=== PATIENT | female | born 1975 | race Caucasian/White ===

== ENCOUNTER 2018-12-10 13:33 | Inpatient (IN) | payer BC ==
[~2018-12-10] VITALS: Ht 167.6 cm; Wt 63.4 kg
[2018-12-10 14:39] LABS: Basophils # (auto) 0.1 uL; Basophils % (auto) 1.8 % (0.0-2.0); Mean Corpuscular Hgb Conc. 29.2 g/dL (32.0-36.0); Red Blood Cells 7.64 10^6/uL (4.0-5.20); White Blood Cell 7.6 10^3/uL (4.4-10.8)
[2018-12-10 14:40] LABS: Eosinophils # (auto) 0 uL; Eosinophils % (auto) 0.3 % (0.0-7.0); Hematocrit 45.3 % (36.0-46.0); Hemoglobin 13.2 g/dL (12.2-16.2); Lymphocytes # (auto) 0.4 uL; Lymphocytes % (auto) 5.5 % (10.0-50.0); Mean Corpuscular Hemoglobin 17.3 pg (28.0-32.0); Mean Corpuscular Volume 59.3 fL (80.0-100.0); Monocytes # (auto) 0.7 uL; Neutrophils # (auto) 6.3 uL; Neutrophils % (auto) 83.4 % (37.0-80.0); Nucleated Red Blood Cells % 0.4 %; Platelet Count (auto) 397 10^3/uL (140-450)
[2018-12-10 14:49] LABS: INR 1.2 (0.9-1.15); Partial Thromboplastin Time 26.5 sec (23.78-33.04); Prothrombin Time 12.7 sec (9.27-12.13)
[2018-12-10 14:53] LABS: Albumin 2.8 g/dL (3.4-5.0); BUN/Creatinine Ratio 34.9; Calcium 8.2 mg/dL (8.5-10.1); Magnesium 2.5 mg/dL (1.6-2.6); Potassium 5.3 mmol/L (3.5-5.1)
[2018-12-10 14:56] LABS: Red Cell Distribution Width 22.5 % (11.8-14.3)
[2018-12-10 14:57] LABS: Bilirubin, Total 0.9 mg/dL (0.2-1.0); Total Protein 6.5 g/dL (6.4-8.2)
[2018-12-10] MEDS ORDERED: HYDROcodone-ACET 5/325MG TAB PO PRN (19:45)
[2018-12-10] MEDS ORDERED: ALPRAZolam 0.25 MG TAB PO PRN (19:45)
[2018-12-10] MEDS ORDERED: NITROGLYCERIN 0.4 MG SL TAB SL PRN (19:45)
[2018-12-10] MEDS ORDERED: MORPHINE SULFATE 4 MG/ML SYR/VIAL IV PRN ×2 (19:45)
[2018-12-10] MEDS ORDERED: ONDANSETRON HCL 4 MG/2 ML VIAL IV PRN (19:45)
[2018-12-10 21:30] LABS: Alcohol, Urine < 3.0 mg/dL (0-5); Amphetamine Screen, Urine NEGATIVE (NEGATIVE); Barbiturate Scree,Urine NEGATIVE (NEGATIVE); Benzodiazephine Screen, Urine NEGATIVE (NEGATIVE); Cannabinoid Screen, Urine NEGATIVE (NEGATIVE); Cocaine Screen, Urine NEGATIVE (NEGATIVE); Opiate Scree,Urine NEGATIVE (NEGATIVE); Phencyclidine Screen, Urine NEGATIVE (NEGATIVE)
[2018-12-10 21:36] LABS: Urine Bacteria FEW /hpf (None Seen); Urine Blood Negative /uL (Negative); Urine Mucus FEW (None Seen); Urine Specific Gravity 1.023 (1.001-1.035); Urine WBC 8 /hpf (0 - 5)
--- NOTE | 2018-12-10 21:45 | NUR ---
Patient refusing to wear cardiac care unit nurse Pt refused cardiac monitoring. Educated pt on dx and need for tele monitor; pt still refused Pt states "I was here last year for the same thing and I was fine. I do not want to wear it." Printed AMA form for monitor; gave to primary RN Informed primary RN Returned tele box to DUNCAN
[2018-12-10 22:00] VITALS: BP 121/87
[2018-12-10] MEDS: METOPROLOL TARTRATE 25 MG TAB PO SCH (22:00)
[2018-12-10] MEDS: CARVEDILOL 3.125 MG TAB PO SCH (22:00)
[2018-12-10] MEDS: FUROSEMIDE 20 MG/2 ML VIAL IV SCH (22:21)
--- NOTE | 2018-12-11 04:40 | NUR ---
Shift Note The patient arrived to the floor refusing to wear the energy infrastructure engineer. The ER Nurse Rochelle explained the need for the monitor but she still refused. The patient also refused to take her scheduled Coreg and Metoprolol at 2200hrs. The patient has a history of anxiety and seemed apprehensive, standoffish. I told her plan of care to include blood work. She didn't want any more blood taken but once I explained the reason she said she may allow it. She refused the Hep Panel when they came at 2300hrs but accepted it at 0400hrs with the rest of the labs. The patient is aware of the planned Thoracentesis and Paracentesis. I believe she will want to leave as soon as both procedures are performed. The patient had no complaints of pain, was just hungry. Will continue to monitor.
[2018-12-11 05:00] VITALS: BP 108/73
[2018-12-11 05:57] LABS: Albumin 2.9 g/dL (3.4-5.0); Calcium 8.3 mg/dL (8.5-10.1); Magnesium 2.4 mg/dL (1.6-2.6); Potassium 4.2 mmol/L (3.5-5.1)
[2018-12-11 06:02] LABS: BUN/Creatinine Ratio 29.7; Bilirubin, Total 0.9 mg/dL (0.2-1.0); Total Protein 6.5 g/dL (6.4-8.2)
[2018-12-11] MEDS: FUROSEMIDE 20 MG/2 ML VIAL IV SCH ×2 (06:13→17:59)
--- NOTE | 2018-12-11 08:00 | NUR ---
Opening Shift Note Assumed care of patient, awake, alert and oriented X4. No S/S of distress/SOB or pain. O2 @ 2 LPM with stats @ 91%. Patient refuses to wear Tele. IV to left antecubital, 20 gauge, patent and saline locked. Right dougherty dressing in place, clean, dry and intact. Instructed on POC and to call for assist PRN, verbalized understanding. Bed locked, in lowest position, call light within reach, will continue to monitor for changes Q1hr and PRN.
[2018-12-11 09:00] VITALS: BP 123/95
[2018-12-11] MEDS: CARVEDILOL 3.125 MG TAB PO SCH ×2 (10:38→22:00)
[2018-12-11] MEDS: METOPROLOL TARTRATE 25 MG TAB PO SCH (10:39)
--- NOTE | 2018-12-11 11:30 | NUR ---
ROUNDS Dr Cortez at bedside for rounds, new orders received and followed through. Patient updated on plan of care, verbalized understanding.
[2018-12-11 13:00] VITALS: BP 82/53
--- NOTE | 2018-12-11 15:48 | NUR ---
CARDIOLOGY Dr Bennett at bedside for rounds, new orders received and followed through. Patient updated on plan of care, verbalized understanding.
--- NOTE | 2018-12-11 15:49 | NUR ---
PARACENTESIS/THORACENTESIS Patient taken to radiology via wheelchair for procedures on 2 L O2 via nasal cannula, no distress noted upon departure.
--- NOTE | 2018-12-11 15:50 | NUR ---
PT IN ULTRASOUND FOR A THORACENTESIS. VSS 101/68-99-22-93%. 1600 FINISHED. VSS 97/50-98-24-94%. PT TOLERATED WELL. 550 ML OF FLUID REMOVED AND SENT TOT LAB. POST CXR DONE.
--- NOTE | 2018-12-11 15:50 | NUR ---
UNABLE TO DRAW ABG , PT NOT IN THE ROOM. PT IN RADIOLOGY FOR MEDICAL PROCEDURE. CHERIE PRECIADO WAS INFORMED. WILL CONTINUE TO MONITOR PT.
--- NOTE | 2018-12-11 19:28 | NUR ---
Care endorsed to JASON Lema, night nurse.
[2018-12-11] MEDS ORDERED: IOHEXOL 300 MG/ML 100ML BOTTLE IJ ONE (19:31)
--- NOTE | 2018-12-11 20:21 | NUR ---
Patient Refusal The patient refused the ordered Abdominal CT scan this evening. I explained the need for it, especially after her procedure, but she stated they just did it yesterday and they could do it tomorrow after the paracentesis. I again tried to explain the need and importance but the patient still refused. Will continue to monitor the situation.
--- NOTE | 2018-12-11 20:56 | NUR ---
Respiratory note: PT ALERT AND AWAKE. PT REFUSED ORDERED ABG FOR THE SECOND TIME. PREVIOUSLY ATTEMPTED AT 1803 PT REFUSED AND STATED TO COME BACK LATER. PT EDUCATED ON ABG DRAW STILL CONTINUES TO REFUSE. WILL CONTINUE TO MONITOR PT ORDERED.
--- NOTE | 2018-12-11 21:10 | NUR ---
Low SPO2 and Patient Refusal Once again the patient refused a scheduled treatment. Explained the need for the ABG, especially since her oxygen saturation is at 83% on 2L O2. The patient insisted on refusing. i explained I could not justify leaving her with her Oxygen saturation so low. Told her to either allow an increase in O2 or wear a face mask. The patient asked to sit up for a few minutes to see if that improved things. I agreed, will re-evaluate in 10mins.
[2018-12-11 22:00] VITALS: BP 107/63
[2018-12-11] MEDS: SILDENAFIL CITRATE 20 MG TAB PO SCH (22:00)
[2018-12-12 05:00] VITALS: BP 100/61
[2018-12-12] MEDS: FUROSEMIDE 20 MG/2 ML VIAL IV SCH (06:00)
--- NOTE | 2018-12-12 06:47 | NUR ---
[facility] Held the patient's Lasix this morning for low BP, 90/68. Despite sitting up most of the night she still managed to have a low BP. Her O2 saturation was low again, between 76-78. I increased the O2 to 3L and told the patient I would reassess in 10mins. The patient refused her blood lab work this morning despite education. Will pass on the long list of refusal to the provider via the day shift nurse. Addendum: 12/12/18 at 0708 by DEYVI MCFADDEN RN Increased O2 to 3L and the patient's SPO2 increased to 92%. I informed the patient that we needed to keep it at 3L or switch to a face mask if she could not tolerate it. The patient stated she understood.
[2018-12-12 08:00] VITALS: BP 90/68
[2018-12-12 08:37] VITALS: BP 90/68
--- NOTE | 2018-12-12 09:10 | NUR ---
PT IN ULTRASOUND FOR A PARACENTESIS. VSS 114/24-066-10-94%.
--- NOTE | 2018-12-12 09:40 | NUR ---
FINISHED WITH PARACENTESIS. 2500 ML OF FLUID REMOVED AND SENT TO THE LAB. VSS 110/72-22-94%.
[2018-12-12] MEDS: SILDENAFIL CITRATE 20 MG TAB PO SCH (10:00)
[2018-12-12] MEDS: CARVEDILOL 3.125 MG TAB PO SCH (10:00)
[2018-12-12] MEDS ORDERED: FUROSEMIDE 20 MG TAB PO ONE (10:30)
[2018-12-12 13:00] VITALS: BP 91/62
--- NOTE | 2018-12-12 14:15 | NUR ---
AMA Note CELY SOTO states they want to leave the hospital Against Medical Advice (AMA). Patient encouraged to stay for further treatment/stabilization. DR. BLANK DOMINGUEZ notified of patient's wishes. Patient advised of the risks and benefits of leaving AMA. Patient verbalized understanding. Patient encouraged to return to the ER if symptoms do not improve or worsen.
[2018-12-12] MEDS ORDERED: SPIRONOLACTONE 25 MG TAB PO SCH (18:00)
[2018-12-13 11:28] LABS: Hepatitis B Surface Antigen Negative (Negative)
[2018-12-13 11:30] LABS: Hepatitis B Core IgM Negative
[2018-12-13 11:31] LABS: Hepatitis A Ab IgM Negative; Hepatitis C Antibody Negative (Negative)
== END 2018-12-12 14:15 | disposition left against medical advice (07) | DRG 291 ==
LOC: ER 13:33 → TELE 19:37 → TELE-WESTW 21:26
PROVIDERS: ADMIT Nurse Practitioner Acute Care; ATTEND Internal Medicine Pulmonary Disease
PROC: 0W993ZZ Drainage of Right Pleural Cavity, Percutaneous Approach (ICD-10-PCS; 2018-12-11)
PROC: 0W9G3ZZ Drainage of Peritoneal Cavity, Percutaneous Approach (ICD-10-PCS; principal; 2018-12-12)
DX: I11.0 Hypertensive heart disease with heart failure (principal); E43 Unspecified severe protein-calorie malnutrition; E87.1 Hypo-osmolality and hyponatremia; J98.11 Atelectasis; R18.0 Malignant ascites; I50.41 Acute combined systolic (congestive) and diastolic (congestive) heart failure; D64.9 Anemia, unspecified; Z68.22 Body mass index [BMI] 22.0-22.9, adult; E87.5 Hyperkalemia; F41.9 Anxiety disorder, unspecified; I27.20 Pulmonary hypertension, unspecified; I27.81 Cor pulmonale (chronic); M41.9 Scoliosis, unspecified; Z53.21 Procedure and treatment not carried out due to patient leaving prior to being seen by health care provider; Z99.81 Dependence on supplemental oxygen
CPT/HCPCS: 10022; 36415; 36600; 71045; 74176; 76604; 76700; 76942; 80053; 80074; 80307; 81001; 82140; 82378; 82805; 83735; 83880; 83986; 84443; 84484; 84702; 85025; 85610; 85730; 86300; 86301; 86304; 87205; 89051; 93005; 93306; G0378

== ENCOUNTER 2018-12-20 14:37 | Inpatient (IN) | payer BC ==
[~2018-12-20] VITALS: Ht 167.6 cm; Wt 50.7 kg
[2018-12-20 15:52] LABS: Basophils # (auto) 0.1 uL; Basophils % (auto) 0.7 % (0.0-2.0); Eosinophils # (auto) 0 uL; Eosinophils % (auto) 0.3 % (0.0-7.0); Hematocrit 44.8 % (36.0-46.0); Hemoglobin 13.2 g/dL (12.2-16.2); Lymphocytes # (auto) 0.5 uL; Lymphocytes % (auto) 4.5 % (10.0-50.0); Mean Corpuscular Hemoglobin 17.3 pg (28.0-32.0); Mean Corpuscular Hgb Conc. 29.4 g/dL (32.0-36.0); Mean Corpuscular Volume 58.9 fL (80.0-100.0); Monocytes # (auto) 1.5 uL; Monocytes % (auto) 13.5 % (0.0-12.0); Neutrophils # (auto) 8.7 uL; Nucleated Red Blood Cells % 0.3 %; Platelet Count (auto) 409 10^3/uL (140-450); Red Blood Cells 7.61 10^6/uL (4.0-5.20); White Blood Cell 10.7 10^3/uL (4.4-10.8)
[2018-12-20 15:57] LABS: Red Cell Distribution Width 23.1 % (11.8-14.3)
[2018-12-20 16:00] LABS: Albumin 2.8 g/dL (3.4-5.0); Magnesium 2.6 mg/dL (1.6-2.6)
[2018-12-20 16:03] LABS: Bilirubin, Total 0.7 mg/dL (0.2-1.0); Total Protein 6.7 g/dL (6.4-8.2)
[2018-12-20 16:14] LABS: Potassium 5.7 mmol/L (3.5-5.1)
[2018-12-20] MEDS ORDERED: LACTULOSE 20Gm/30ML SOLN PO PRN (17:15)
[2018-12-20] MEDS ORDERED: ACETAMINOPHEN 500 MG TAB PO PRN (17:15)
[2018-12-20] MEDS ORDERED: MORPHINE SULFATE 4 MG/ML SYR/VIAL IV PRN ×2 (17:15)
[2018-12-20] MEDS ORDERED: PROMETHAZINE HCL 25 MG/ML 1ML IV PRN (17:15)
[2018-12-20] MEDS ORDERED: TEMAZEPAM 15 MG CAP PO PRN (17:15)
[2018-12-20] MEDS ORDERED: NITROGLYCERIN 0.4 MG SL TAB SL PRN (17:15)
[2018-12-20] MEDS ORDERED: LORazepam 0.5 MG TAB PO PRN (17:15)
[2018-12-20] MEDS ORDERED: HYDROcodone-ACET 5/325MG TAB PO PRN (17:15)
[2018-12-20] MEDS ORDERED: ALBUTEROL SULF 2.5 MG/0.5ML(0.5%) NEB SOLN NEB PRN (17:15)
[2018-12-20 17:49] LABS: INR 1.06 (0.9-1.15); Partial Thromboplastin Time 25.3 sec (23.78-33.04); Prothrombin Time 11.3 sec (9.27-12.13)
[2018-12-20] MEDS: FUROSEMIDE 40 MG/4 ML VIAL IV SCH (18:00)
[2018-12-20] MEDS: ALBUTEROL SULF 2.5 MG/0.5ML(0.5%) NEB SOLN NEB SCH (18:20)
[2018-12-20] MEDS ORDERED: SODIUM POLYSTYRENE SULF 15 GM POWDER PO ONE (19:30)
[2018-12-20 19:34] LABS: BUN/Creatinine Ratio 40.7
[2018-12-20 19:56] VITALS: BP 132/66
[2018-12-20] MEDS: SILDENAFIL CITRATE 20 MG TAB PO SCH (20:31)
[2018-12-20 20:35] LABS: Anion Gap 8 (5-15); BUN/Creatinine Ratio 37.7; Blood Urea Nitrogen 23 mg/dL (7-18); Calcium 7.8 mg/dL (8.5-10.1); Carbon Dioxide 30 mmol/L (21-32); Chloride 96 mmol/L (98-107); GFR African American 139 mL/min; GFR Non-African American 115 mL/min; Glucose 83 mg/dL (74-106); Potassium 5.2 mmol/L (3.5-5.1); Sodium 134 mmol/L (136-145)
[2018-12-20] MEDS: CARVEDILOL 3.125 MG TAB PO SCH (22:55)
[2018-12-20] MEDS: SODIUM CHLOR 0.9% PF (SALINE LOCK) 10ML VIAL/SYR IV SCH (22:56)
[2018-12-20 23:23] VITALS: BP 106/58
[2018-12-20] MEDS ORDERED: FURO20TA3 PO (23:51)
[2018-12-20] MEDS ORDERED: SILD20TA12 PO (23:51)
[2018-12-21] VITALS (7 sets, daily range): BP systolic 95–123; BP diastolic 50–75
[2018-12-21] MEDS: ALBUTEROL SULF 2.5 MG/0.5ML(0.5%) NEB SOLN NEB SCH ×4 (01:14→19:39)
[2018-12-21] MEDS: FUROSEMIDE 40 MG/4 ML VIAL IV SCH ×2 (05:57→18:50)
[2018-12-21] MEDS: SODIUM CHLOR 0.9% PF (SALINE LOCK) 10ML VIAL/SYR IV SCH ×3 (06:06→21:56)
[2018-12-21 06:45] LABS: Cholesterol 79 mg/dL (< 200); HDL Cholesterol 27 mg/dL (40-59); LDL Cholesterol 49 mg/dL (< 100); Triglycerides 63 mg/dL (< 150)
--- NOTE | 2018-12-21 07:30 | NUR ---
Opening Shift Note Assuming care of patient at this time. Patient is resting in bed comfortably. Patient denies pain and shows no signs or symptoms of distress or shortness of breath. Instructed patient on the plan of care for today and to call for assistance as needed. Call light within reach. Will continue to monitor.
--- NOTE | 2018-12-21 07:31 | NUR ---
Respiratory note: PT REFUSED M TX AT THIS TIME. NO SIGNS OR SYMPTOMS OF RESPIRATORY DISTRESS. RN WILL BE INFORMED OF REFUSAL.
[2018-12-21] MEDS: SILDENAFIL CITRATE 20 MG TAB PO SCH ×3 (08:00→21:56)
--- NOTE | 2018-12-21 09:00 | NUR ---
Re: OB consult Dr. at bedside at this time discussing plan of care with patient and this RN. Addressed all questions and concern with patient and family bedside.
[2018-12-21] MEDS: PANTOPRAZOLE 40 MG TAB PO SCH (09:41)
[2018-12-21] MEDS: ASPirin 81 mg TAB PO SCH (09:41)
[2018-12-21] MEDS ORDERED: NITROGLYCERIN 0.2MG/HR TOPICAL PATCH TD SCH (10:00)
[2018-12-21] MEDS ORDERED: LEVOFLOXACIN 500MG 100 ML IV SCH (10:00)
[2018-12-21] MEDS: ENALAPRIL MALEATE 2.5 MG TAB PO SCH (10:00)
[2018-12-21] MEDS: CARVEDILOL 3.125 MG TAB PO SCH ×2 (10:00→21:56)
[2018-12-21] MEDS ORDERED: ENOXAPARIN SOD 40 MG/0.4 ML SYRINGE SC SCH (10:00)
--- NOTE | 2018-12-21 11:15 | NUR ---
Respiratory note: MED NEB TX REFUSED. HR 99, RR 16, POX 94% ON 4 L NC. NO SIGNS OF RESPIRATORY DISTRESS NOTED. INFORMED PT CALL IF FEELING SOB OR WHEEZING.
--- NOTE | 2018-12-21 12:40 | NUR ---
Re: at bedside Dr. Villaseñor at bedside at this time discussing plan of care with patient. New orders to be input.
--- NOTE | 2018-12-21 16:07 | NUR ---
ORDER AND CLINICALS FAXED TO [facility] AND [facility] FOR TRANSFER TO HIGHER LEVEL. PATIENT HAS BEEN PUT ON WILL CALL WITH [facility] [phone]
--- NOTE | 2018-12-21 16:30 | NUR ---
Respiratory note: UNABLE TP PERFORM PFT AT THIS TIME. PT AT PROCEDURE. JASON FERNANDEZ MADE AWARE.
--- NOTE | 2018-12-21 16:48 | NUR ---
Respiratory note: PULMONARY FUNCTION TEST ORDERED BY DR BRYSON. SPOKE WITH JASON FERNANDEZ REGARDING ORDERS. IT APPEARS, WITH ALL OTHER TESTS ORDERED/SUGGESTED WANTS COMPLETE PFT. COMPLETE PFT IS OUTPATIENT PROCEDURE. PT IS CURRENTLY IN HOUSE. PFT WILL NEED TO BE SCHEDULED UPON DISCHARGE.
[2018-12-21] MEDS: ALBUMIN 25% 100 ML IV SCH ×2 (17:57→21:55)
--- NOTE | 2018-12-21 18:00 | NUR ---
Re: Medical Records Fax to [facility] at this time to request medical records.
--- NOTE | 2018-12-21 18:38 | NUR ---
Re: Urine sample Urine sent at this time.
[2018-12-21 19:25] LABS: Alcohol, Urine < 3.0 mg/dL (0-5); Amphetamine Screen, Urine NEGATIVE (NEGATIVE); Barbiturate Scree,Urine NEGATIVE (NEGATIVE); Benzodiazephine Screen, Urine NEGATIVE (NEGATIVE); Cannabinoid Screen, Urine NEGATIVE (NEGATIVE); Cocaine Screen, Urine NEGATIVE (NEGATIVE); Opiate Scree,Urine NEGATIVE (NEGATIVE); Phencyclidine Screen, Urine NEGATIVE (NEGATIVE)
--- NOTE | 2018-12-21 19:45 | NUR ---
Opening Shift Note Assumed care of patient, awake and alert, oriented x 4. on oxygen at 4L via NC with even and unlabored respiration. no S/S of distress/SOB. denies pain. abd large and round, non-tender, leaking from paracentesis site, clear yellow moderate amount of drainage. patient ambulates with steady gait. IV intact and patent. bed low locked position with side rails up x 2 and call light within reach. Instructed on POC and to call for assist PRN, will continue to monitor for changes Q1hr and PRN.
--- NOTE | 2018-12-21 19:46 | NUR ---
Closing Shift Note Patient is resting in bed at this time. Patient denies pain at this time. at bedside. Will endorse care to the security shift supervisor RN.
--- NOTE | 2018-12-21 22:43 | NUR ---
Received a call from [facility] transfer center ( [facility] ) who want to talk to transferring MD Dr Villaseñor. Explained that Dr Villaseñor is not reachable at this time. Advised to call them back tomorrow at tel # [phone] option 3 re: transfer and to talk to accepting MD.
[2018-12-22] MEDS: ALBUTEROL SULF 2.5 MG/0.5ML(0.5%) NEB SOLN NEB SCH ×4 (00:20→18:58)
--- NOTE | 2018-12-22 00:20 | NUR ---
Respiratory note: PT SEEN FOR SCHEDULED MED NEB TX AT 0020. PT IS REFUSING HER TREATMENT AT THIS TIME. STATES THAT SHE DOESN'T THINK SHE NEEDS THEM. HR 112 RR 20 POX 97% PT AWARE TO CALL FOR RT IF SHE CHANGES HER MIND.
[2018-12-22] MEDS: ALBUMIN 25% 100 ML IV SCH (04:59)
[2018-12-22 05:07] VITALS: BP 88/56
[2018-12-22 05:59] LABS: Basophils # (auto) 0.1 uL; Basophils % (auto) 1.5 % (0.0-2.0); Eosinophils # (auto) 0 uL; Eosinophils % (auto) 0.5 % (0.0-7.0); Hematocrit 40.5 % (36.0-46.0); Hemoglobin 11.9 g/dL (12.2-16.2); Lymphocytes # (auto) 0.5 uL; Mean Corpuscular Hemoglobin 17.4 pg (28.0-32.0); Mean Corpuscular Hgb Conc. 29.2 g/dL (32.0-36.0); Mean Corpuscular Volume 59.4 fL (80.0-100.0); Monocytes % (auto) 12.5 % (0.0-12.0); Neutrophils % (auto) 78.5 % (37.0-80.0); Nucleated Red Blood Cells % 0.2 %; Platelet Count (auto) 291 10^3/uL (140-450); Red Blood Cells 6.82 10^6/uL (4.0-5.20); White Blood Cell 7.6 10^3/uL (4.4-10.8)
[2018-12-22] MEDS: FUROSEMIDE 40 MG/4 ML VIAL IV SCH ×2 (06:00→18:00)
[2018-12-22 06:04] LABS: Red Cell Distribution Width 23.3 % (11.8-14.3)
[2018-12-22 06:18] LABS: Potassium 3.9 mmol/L (3.5-5.1)
[2018-12-22 06:23] LABS: Calcium 8.3 mg/dL (8.5-10.1)
[2018-12-22] MEDS: SODIUM CHLOR 0.9% PF (SALINE LOCK) 10ML VIAL/SYR IV SCH ×2 (06:38→15:02)
--- NOTE | 2018-12-22 07:00 | NUR ---
Closing note patient sitting up at bedside, dangle feet. on oxygen at 4L via NC with even and unlabored respirations, no s/s of distress. patient continues to leak yellow drainage from paracentesis site. Endorsed care to day shift RN.
--- NOTE | 2018-12-22 07:30 | NUR ---
Opening Note Assuming care of patient. Patient is resting in bed. Patient denies pain and shows no signs or symptoms of distress. Instructed patient on the plan of care for today and to call for assistance as needed. Bed is locked and lowered with side rails up x2. Paracentesis site is leaking a large amount of clear fluid. Changed pad that was in place. Call light within reach. Will continue to monitor.
[2018-12-22 09:38] VITALS: BP 91/65
[2018-12-22] MEDS: PANTOPRAZOLE 40 MG TAB PO SCH (09:59)
[2018-12-22] MEDS: SILDENAFIL CITRATE 20 MG TAB PO SCH ×2 (09:59→15:01)
[2018-12-22] MEDS: CARVEDILOL 3.125 MG TAB PO SCH (10:00)
[2018-12-22] MEDS: ASPirin 81 mg TAB PO SCH (10:00)
[2018-12-22] MEDS: ENALAPRIL MALEATE 2.5 MG TAB PO SCH (10:00)
--- NOTE | 2018-12-22 11:19 | NUR ---
RT NOTE: WENT TO PTS ROOM TO ADMINISTER BREATHING TX, PT SITTING UP IN BED, PT STATED THAT SHE HAD A TX THIS MORNING AND DID NOT NEED ONE AT THIS TIME. PT AWARE TO CALL IF HAVING ANY SOB. HR 99%, SPO2 96% ON 4L NC, RR 16, BREATH SOUNDS DIMINISHED. WILL CONTINUE TO MONITOR PT.
[2018-12-22 13:00] VITALS: BP 113/56
--- NOTE | 2018-12-22 16:52 | NUR ---
Call from [place] Patient has a bed available, [address] Room 1, Bed 2. Will call case management in order to arrange transportation. Number for report . Number for any transfer questions [facility] center Opt 2 then opt 3.
[2018-12-22 17:14] VITALS: BP 113/56
[2018-12-22 17:54] VITALS: BP 94/36
--- NOTE | 2018-12-22 17:55 | NUR ---
[facility] to pear picker patient at 1900 to transport to [facility]-nurse Rochelle made aware.
--- NOTE | 2018-12-22 19:00 | NUR ---
RT NOTE PT REFUSED TX AND STATED THAT SHE IS LEAVING TO GO TO ANOTHER HOSPITAL IN 2 HRS.
--- NOTE | 2018-12-22 19:05 | NUR ---
Opening Note Received report from day shift RN. Patient is awake, alert and oriented x4. Patient is sitting up at bedside, dangling feet. Patient is on 4L NC. at bedside. Patient is to be picked up by [facility] at 2100 for transfer to [place]. Reviewed plan of care, patient verbalized understanding. Bed in low and locked position, call light within reach. Will continue to monitor Q1 hour and PRN.
--- NOTE | 2018-12-22 20:21 | NUR ---
Closing Shift Note Patient is aware of pending transfer. Transportation should arrive at 2100. Report not given to accepting facility and tele monitor still on. JASON Landin aware of both. Will endorse care to JASON Landin.
--- NOTE | 2018-12-22 20:30 | NUR ---
Patient transferred [facility] picked up patient. Patient is beign transferred to [place] [address], room 1 bed 2. All belongings and paperwork sent with patient and . Patient is being transferred with IV in left AC 22g, saline locked. Patient is on 4L NC. No signs or symptoms of distress noted at this time.
--- NOTE | 2018-12-22 20:50 | NUR ---
Called Mary Gannon to give report Receiving nurse was unavailable to give report to at this time, naphthalene operator helper stated "in a room with a patient." Will call back
--- NOTE | 2018-12-22 21:55 | NUR ---
Report given Called Mary Gannon, report given to Jonha. [place] Addendum: 12/22/18 at 2209 by MARY REYES RN RN Patient is going to [address], Room 1, bed 2.
[2018-12-23] MEDS ORDERED: ENOXAPARIN SOD 40 MG/0.4 ML SYRINGE SC SCH (10:00)
== END 2018-12-22 20:30 | disposition short-term general hospital (02) | DRG 947 ==
LOC: EDBD 14:37 → ER 14:38 → TELE 17:16 → TELE-WESTW 22:05
PROVIDERS: ADMIT Internal Medicine; ATTEND Internal Medicine
PROC: 0W9G3ZZ Drainage of Peritoneal Cavity, Percutaneous Approach (ICD-10-PCS; principal; 2018-12-21)
DX: R18.8 Other ascites (principal); J96.20 Acute and chronic respiratory failure, unspecified whether with hypoxia or hypercapnia; E43 Unspecified severe protein-calorie malnutrition; J90 Pleural effusion, not elsewhere classified; Z68.1 Body mass index [BMI] 19.9 or less, adult; E87.5 Hyperkalemia; I50.9 Heart failure, unspecified; I27.20 Pulmonary hypertension, unspecified; M41.9 Scoliosis, unspecified; Z82.49 Family history of ischemic heart disease and other diseases of the circulatory system; Z83.3 Family history of diabetes mellitus; Z99.81 Dependence on supplemental oxygen
CPT/HCPCS: 36415; 36600; 71045; 76604; 76700; 76856; 76942; 80048; 80053; 80061; 80307; 82550; 82805; 83735; 83880; 83986; 84443; 84484; 85025; 85610; 85652; 85730; 86141; 86304; 87081; 89051; 93005; 94640; 96374; G0378; J1956; P9047

== ENCOUNTER 2019-01-29 10:17 | Emergency (ER) | payer BC ==
[2019-01-29 10:17] VITALS: BP 0/0
[~2019-01-29 10:17] MED LIST: FURO20TA3 PO; SILD20TA12 PO
[2019-01-29] MEDS ORDERED: DOPamine 1600mCg/ml 400MG/250ml NSorD5 KIT/BAG IV ONE (10:18)
[2019-01-29] MEDS ORDERED: ATROPINE SULF 1 MG/10ml SYR IV ONE (10:18)
[2019-01-29] MEDS ORDERED: EPINEPHrine HCL 1 MG/10 ML SYRG IV ONE (10:18)
[2019-01-29] MEDS ORDERED: SODIUM BICARBONATE 8.4% INJ 50ML SYRINGE IV ONE (10:18)
[2019-01-29] MEDS ORDERED: CALCIUM CHLOR(10%) 100MG/ML 10ML SYRINGE IV ONE (10:18)
[2019-01-29] MEDS ORDERED: NOREPINEPHRINE 8 MG/250ML KIT 250 ML IV ONE (10:26)
[2019-01-29] MEDS ORDERED: EPINEPHrine HCL 1 MG/10 ML SYRG ONE (10:28)
== END 2019-01-29 14:25 | disposition expired ==
LOC: EDBD 10:17 → ER 10:17
DX: I46.9 Cardiac arrest, cause unspecified (principal); I11.0 Hypertensive heart disease with heart failure; I50.9 Heart failure, unspecified
CPT/HCPCS: 31500; 92950; 99285; J0171; J1265